=== PATIENT | female | born 1970 | race Caucasian/White ===

== ENCOUNTER 2024-06-18 23:13 | Emergency (ER) | payer BC, SELFPAY ==
--- OUTSIDE RECORDS SUMMARY | 2024-06-18 23:15 | XMS_ITS | Continuity of Care Document ---
Author Organization [facility] Address [address] [address] [place] [address] Phone Care Team Providers Care Pharmacologist Name Role Phone Sonny Rodriguez MD Unavailable Unavailable Advance Directives Directive Yes / No Effective Date File Name No Information Encounters Encounter Description Practice Location Reason(s) For Visit Diagnoses Date Provider Providers Copied on Encounter [facility], [address] [address], [place], [place], [id number], [place] tel:[phone] [facility] No Information Jennifer Dennis. [address] [facility], [facility] [address], [place], [place], [id number], [place]. tel:[phone] Referring Provider: Listed Not. Family History Family Member Type Diagnosis Age At Onset No Information Payers Payer name Insurance type Covered alliance party ID Authoriza tion(s) No Information Social History Type Description Quantity Date Captured Comments Sex Female Smoking Status No Information Chief Complaint And Reason For Visit No Information Reason For Referral Reason For Referral No Information History Of Present Illness Encounter Date Complaint History Of Prese nt Illness No Information Functional Status Date Functional Assessmen t No Information Instructions Date Instruction Additional Infor mation No Information Assessments Type Assessment Date No Information Patient Care Teams Name Effective Dates (start - stop) Status Members No Information
--- OUTSIDE RECORDS SUMMARY | 2024-06-18 23:15 | XMS_ITS | Clinical Summary ---
Author Organization [facility] Address [place], [place] [address] Care Team Providers Care Electrical Machine Builder Name Role Phone Vania Finley Primary Care Provider [phone] Allergies No known active allergies Medications omeprazole 20 mg tabletIndications:G astric reflux Take 1 Tablet (20 mg) by mouth once daily before a meal. 90 Tablet 3 4 Active miscellaneous medical supply (Blood Pressure Cuff) miscIndications:Nicole vated BP without diagnosis of hypertension As directed. 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 90 Tablet 3 4 Active sertraline (ZOLOFT) 100 mg tabletIndications:M oderate episode of recurrent major depressive disorder (HC) Take 1.5 Tablets (150 mg) by mouth once daily. 135 Tablet 2 4 Active SUMAtriptan (IMITREX) 50 mg tabletIndications:M igraine without aura and without status migrainosus, not intractable take 1-2 tablets by mouth once at sign of migraine, may repeat dose after 2 hours. do not take more than 2 tablets per dose or 4 tablets per 24 hours 10 Tablet 2 4 Active celecoxib (CeleBREX) 100 mg capsuleIndications: Primary osteoarthritis of left hip Take 1 Capsule (100 mg) by mouth two times daily with meals. 60 Capsule Active Active Problems Problem Noted Date Diagnosed Date Anxiety 09/21/2013 Depression 09/21/2013 Major depression in partial remission 03/31/2013 GERD (gastroesophageal reflux disease) Encounters Date Type Department Care Team Description 06/14/2024 9:58 AM [facility] - 06/14/2024 11:59 PM [facility] Hospital Encounter [address] [place] [address] [place]ge, Farhana Neves, PT 06/14/2024 Travel 05/27/2024 10:51 AM [facility] - 05/27/2024 11:59 PM [facility] Hospital Encounter [address] [place] [place] [address] [place], Ariela Cantu V, MATHEMATICAL SCIENTIST 05/27/2024 Travel 05/20/2024 11:45 AM [facility] - 05/20/2024 11:59 PM [facility] Hospital Encounter [address] [place] [place] [address] Aster Pastor, Farhana Posadas, PT Primary osteoarthritis of left hip 05/20/2024 Travel 04/21/2024 10:45 AM [facility] Ancillary Procedure [facility] [address] [address] [place] [address] 04/21/2024 10:40 AM [facility] Ancillary Procedure [facility] [address] [place] [address] 04/21/2024 10:30 AM [facility] Office Visit [facility] [address] [address] [place] [address] [place] Monge, Hip Pain/problem (Left hip pain) 04/21/2024 Travel 04/19/2024 9:30 AM [facility] - 04/19/2024 11:59 PM [facility] Hospital Encounter [facility] [address] [place] [address] Vania Finley, DO Hip pain, left 04/19/2024 Travel 04/07/2024 Telephone [facility] [address] [place] [address] Vania Finley, DO Work Note 04/06/2024 9:10 AM [facility] Office Visit [facility] [address] [facility] [address] Vania Finley, DO Musculoskeletal Problem (Left sided groin pain down through leg ongoing getting worse) 04/06/2024 Travel from Last 3 Months Immunizations Name Administration Dates Next Due COVID-19 vaccine (Moderna 100mcg/0.5mL) PF, MDV 07/27/2020,06/29/2020 Influenza Virus, Unspecified 03/09/2014(Deferred : Patient Refused) Influenza, IIV3 (Age >=3 years) 03/09/2014 Tdap 12/19/2014 Social History Tobacco Use Types Packs/Day Years Used Date Smoking Tobacco: Some Days Cigarettes Smokeless Tobacco: Never Tobacco Cessation:Ready to Q uit: No; Counseling Given: Yes Alcohol Use Standard Drinks/Week Comments Yes 0 (1 standard drink = 0.6 oz pur e alcohol) less than monthly PHQ-2 Answer Date Recorded PHQ-2 TOTAL SCORE 6 04/06/2024 Social Connections Answer Date Recorded Do you often feel lonely or isolated from those around you? 0 07/16/2023 Alcohol Use Answer Date Recorded How often do you have a drink containing alcohol ? 1 07/16/2023 How many drinks containing a lcohol do you have on a typical day when you are drinking? 0 07/16/2023 How often do you have five or more drinks on one occasion? 0 07/16/2023 Financial Resource Strain Answer Date R ecorded Difficulty of Paying Living Expenses 3 07/16/2023 Difficulty of Paying Living Expenses Not on file 07/16/2023 Food Insecurity Answer Date Recorded Do you worry your food will run out before you are able to buy more? 1 07/16/2023 Transportation Needs Answer Date Record ed Does lack of transportation keep you from medica l appointments? 1 07/16/2023 Does lack of transportation keep you from work, meetings or getting things that you need? 1 07/16/2023 Housing Stability Answer Date Recorded What is your housing situation today? 1 07/16/2023 Utilities Answer Date Recorded Do you have trouble paying f or utilities (for example, heat, electricity, water, phone)? 1 07/16/2023 Comments No Sex and Gender Information Value Date Recorded Sex Assigned at Not on file Legal Sex Female 5:26 AM [facility] Gender Identity Not on file Sexual Orientation Not on file Obstetrics History Last Filed Vital Signs Vital Sign Reading Time Taken Comments Blood Pressure 118/83 04/06/2024 9:26 AM [facility] Pulse 55 04/06/2024 9:26 AM [facility] Temperature 36.2 C (97.1 F) 01/20/2018 7:47 AM CDT Respiratory Rate 14 09/26/2023 12:23 PM CDT Oxygen Saturation 96% 04/06/2024 9:26 AM [facility] Inhaled Oxygen Concentration - - Weight 80.1 kg (176 lb 8 oz) 07/16/2023 9:29 AM [facility] Height 160 cm (5' 3) 04/21/2024 11:00 AM [facility] Body Mass Index 32.02 07/16/2023 9:29 AM [facility] Plan of Treatment Upcoming Encounters Date Type Department Care Team (Late st Contact Info) Description 06/23/2024 8:30 AM [facility] Office Visit [facility] [address] [phone] Glen Monge, [address] [place] [address] Health Maintenance Due Date Last Done Comments HIV for age 15-65 1983 Hepatitis C screening for ag e 18-79 1986 Pneumococcal series for age 50+ (1 of 2 - PCV) 1987 Pap test for age 21-65 09/06/2007 09/05/2004 Mammogram for age 45-75 2013 Zoster (shingles) series for age 50+ (1 of 2) 2018 COVID-19 vaccine series ( season) 2024 07/27/2020, 06/29/2020 Influenza for age 50-64 01/18/2024 03/09/2014 Lipids for age 45-75 05/26/2024 05/26/2019 BMI (ht and wt on same day) for age 18+ 07/16/2024 07/16/2023, 01/20/2018 Tetanus booster 12/19/2024 12/19/2014 Depression screening for age 12+ 04/07/2025 04/07/2024, 04/06/2024, 07/16/2023, Additional history exists Colonoscopy through age 75 09/25/2033 09/26/2023, Tdap Completed 12/19/2014 Procedures Procedure Name Priority Date/Time Associated Diagnosis Comments XR LEG LENGTH Routine 04/21/2024 10:37 AM [facility] Chronic left hip pain XR HIP 2 OR 3 VIEWS W PELVIS LEFT Routine 04/21/2024 10:36 AM [facility] Chronic left hip pain MR ARTHROGRAM HIP LEFT Routine 10:41 AM [facility] Hip pain, left XR INJ CT/MR ARTHROGRAM HIP LEFT Routine 04/19/2024 10:22 AM [facility] Hip pain, left COLONOSCOPY 09/26/2023 11:19 AM CDT LIPID PANEL W REFLEX MEASURED LDL Routine 05/26/2019 2:30 PM [facility] Lipid screening GYNECOLOGICAL PANEL Timed 09/05/2004 2 :26 PM CDT from Last 3 Months or Most Recently Relevant to Health Maintenance Results * XR LEG LENGTH (04/21/2024 10:37 AM [facility]) Anatomical Region Laterality Modality LEGS, FEMURS Computed Radiogr aphy 04/21/2024 11:3 3 AM [facility] Narrative 04/21/2024 11:33 AM [facility] For Patients: As a result of the Cures Act, medical imaging exams and procedure reports are released immediately into your electronic medical record. You may view this report before your referring provider. If you have questions, please contact your health care provider. INDICATION: Chronic left hip pain TECHNIQUE: Leg length 1 AP view hip to ankle bilateral. COMPARISON: None. FINDINGS: Measurements are made from hip acetabulum to ankle mortise. Right le.8 cm Left le.1 cm Dictated by Bri Bassett MD @ 04/21/2024 11:33:26 AM (Electronically Signed) Procedure Note Alan Bassett MD - 04/21/2024 For Patients: As a result of the s Act, medical imagingexams and procedure reports are released immediately into your electronicmedical record. You may view this report before your referring provider.If you have questions, please contact your health care provider. INDICATION: Chronic left hip pain TECHNIQUE: Leg length 1 AP view hip to ankle bilateral. COMPARISON: None. FINDINGS: Measurements are made from hip acetabulum to ankle mortise. Right le.8 cm Left le.1 cm Dictated by Bri Bassett MD @ 04/21/2024 11:33:26 AM (Electronically Signed) Glen Monge DO GENERAL IMAGING Final Resu lt * XR HIP 2 OR 3 VIEWS W PELVIS LEFT (04/21/2024 10:36 AM [facility]) Anatomical Region Laterality Modality HIPS, HIPL, Pelvis Computed Radi ography 04/21/2024 11:3 1 AM [facility] Narrative 04/21/2024 11:31 AM [facility] For Patients: As a result of the s Act, medical imaging exams and procedure reports are released immediately into your electronic medical record. You may view this report before your referring provider. If you have questions, please contact your health care provider. INDICATION: Chronic left hip pain. TECHNIQUE: AP pelvis and left hip 3 views. FINDINGS: Moderate osteoarthritis of the left hip. Mild right hip arthritis. No change from the recent MRI scan. No acute fracture lytic bone destruction. Dictated by Bri Bassett MD @ 04/21/2024 11:31:59 AM (Electronically Signed) Procedure Note Alan Bassett MD - 04/21/2024 For Patients: As a result of the Cures Act, medical imagingexams and procedure reports are released immediately into your electronicmedical record. You may view this report before your referring provider.If you have questions, please contact your health care provider. INDICATION: Chronic left hip pain. TECHNIQUE: AP pelvis and left hip 3 views. FINDINGS: Moderate osteoarthritis of the left hip. Mild right hip arthritis. Nochange from the recent MRI scan. No acute fracture lytic bonedestruction. Dictated by Bri Bassett MD @ 04/21/2024 11:31:59 AM (Electronically Signed) us Glen Monge DO GENERAL IMAGING Final Resu lt * MR ARTHROGRAM HIP LEFT (04/19/2024 10:41 AM [facility]) Anatomical Region Laterality Modality HIPL Magnetic Resonan ce 04/20/2024 10:3 8 AM [facility] Impressions 04/20/2024 10:38 AM [facility] 1. Mild to moderate osteoarthritis left hip. No labral tear. 2. Mild osteoarthritis right hip on large field imaging. 3. Didelphys uterus. Dictated by Nathan Bravo MD @ 04/20/2024 10:38:27 AM (Electronically Signed) Narrative 04/20/2024 10:38 AM [facility] For Patients: As a result of the Cures Act, medical imaging exams and procedure reports are released immediately into your electronic medical record. You may view this report before your referring provider. If you have questions, please contact your health care provider. INDICATION: Hip pain. COMPARISON: Plain film 16 July 2023. TECHNIQUE: Axial, oblique axial, coronal and sagittal T1 fat sat axial and sagittal PD fat- sat small [id number] sequences. Coronal large field pelvis T1 and PD fat-sat sequences. Dilute intra-articular gadolinium into the left hip. FINDINGS: Left hip: No fracture, bone lesion or avascular necrosis. Up to grade 4 diffuse cartilage loss anterior and superior margin with relative posterior sparing. Patchy subchondral edema in the superior central femoral head deep to full thickness cartilage loss. Small subchondral cysts and edema of the superior and anterior acetabulum fossa. No significant labral tear. Some minor fraying of the free margin anteriorly. No intra-articular body or synovitis. Normal-appearing acetabular and femoral morphology. Intact hamstring origin. Intact gluteal tendon insertions. No trochanteric bursitis. Pelvis: Subchondral cysts of the anterosuperior right acetabulum. No effusion. No full thickness cartilage loss. No trochanteric bursitis. Intact hamstring origin. Apparent didelphys uterus. Normal sacroiliac joints and symphysis pubis. Procedure Note Nathan Bravo MD - 04/20/2024 For Patients: As a result of the Cures Act, medical imagingexams and procedure reports are released immediately into your electronicmedical record. You may view this report before your referring provider.If you have questions, please contact your health care provider. INDICATION: Hip pain. COMPARISON: Plain film 16 July 2023. TECHNIQUE: Axial, oblique axial, coronal and sagittal T1 fat sat axial and sagittalPD fat- sat small [id number] sequences. Coronal large field pelvis T1and PD fat-sat sequences. Dilute intra-articular gadolinium into the lefthip. FINDINGS: Left hip: No fracture, bone lesion or avascular necrosis. Up to grade 4diffuse cartilage loss anterior and superior margin with relativeposterior sparing. Patchy subchondral edema in the superior centralfemoral head deep to full thickness cartilage loss. Small subchondralcysts and edema of the superior and anterior acetabulum fossa. Nosignificant labral tear. Some minor fraying of the free margin anteriorly.No intra-articular body or synovitis. Normal-appearing acetabular andfemoral morphology. Intact hamstring origin. Intact gluteal tendoninsertions. No trochanteric bursitis. Pelvis: Subchondral cysts of the anterosuperior right acetabulum. Noeffusion. No full thickness cartilage loss. No trochanteric bursitis.Intact hamstring origin. Apparent didelphys uterus. Normal sacroiliacjoints and symphysis pubis. IMPRESSION: 1. Mild to moderate osteoarthritis left hip. No labral tear. 2. Mild osteoarthritis right hip on large field imaging. 3. Didelphys uterus. Dictated by Nathan Bravo MD @ 04/20/2024 10:38:27 AM (Electronically Signed) us Vania Finley DO MR Final Resu lt * XR INJ CT/MR ARTHROGRAM HIP LEFT (04/19/2024 10:22 AM [facility]) Anatomical Region Laterality Modality HIPL Computed Radiogr aphy, Other 04/19/2024 10:5 7 AM [facility] Impressions 04/19/2024 10:57 AM [facility] Successful left hip arthrogram, pre-MRI. Dictated by Bri Bassett MD @ 04/19/2024 10:57:11 AM (Electronically Signed) Narrative 04/19/2024 10:57 AM [facility] For Patients: As a result of the Cures Act, medical imaging exams and procedure reports are released immediately into your electronic medical record. You may view this report before your referring provider. If you have questions, please contact your health care provider. INDICATION: Left hip pain TECHNIQUE: Fluoroscopically-guided left hip arthrogram, pre-MRI. Fluoroscopy time: 19 seconds. 1 image. FINDINGS: The examination and risks were fully explained to the patient. A consent form was signed and a time-out conducted prior to initiating the study. Utilizing sterile procedure and 1 percent Xylocaine as local anesthesia, a 22- gauge spinal needle was directed into the left hip joint. 12 cc of a solution (containing 10 cc Omnipaque-300, 5 cc sterile saline, 5 cc ropivacaine 0.5 percent and 0.2 cc gadolinium) was injected. No bleeding at the puncture site or complication. The patient was stable at the termination of the procedure. Procedure Note Alan Bassett MD - 04/19/2024 For Patients: As a result of the Cures Act, medical imagingexams and procedure reports are released immediately into your electronicmedical record. You may view this report before your referring provider.If you have questions, please contact your health care provider. INDICATION: Left hip pain TECHNIQUE: Fluoroscopically-guided left hip arthrogram, pre-MRI. Fluoroscopy time: 19 seconds. 1 image. FINDINGS: The examination and risks were fully explained to the patient. A consentform was signed and a time-out conducted prior to initiating the study. Utilizing sterile procedure and 1 percent Xylocaine as local anesthesia, a22- gauge spinal needle was directed into the left hip joint. 12 cc of asolution (containing 10 cc Omnipaque-300, 5 cc sterile saline, 5 ccropivacaine 0.5 percent and 0.2 cc gadolinium) was injected. No bleedingat the puncture site or complication. The patient was stable at thetermination of the procedure. IMPRESSION: Successful left hip arthrogram, pre-MRI. Dictated by Bri Bassett MD @ 04/19/2024 10:57:11 AM (Electronically Signed) us Vania Finley DO FLUOROSCOPY Final Resu lt * COLONOSCOPY (09/26/2023 11:19 AM CDT) 09/26/2023 11:1 9 AM CDT Narrative Transcriptions Jamar Pedraza MD - 09/26/2023 12:13 PM CDT Patient Name: Diane Pumper Procedure Date: 09/26/2023 Gender: Female Date of : 1970 Admit Type: Outpatient Procedure: Colonoscopy Proceduralist: Jamar Pedraza MD , Sonia Bedolla, RN(Nurse), Keren Bunn (Nurse) Indications/Pre-Op Diagnosis: Screening for colorectal malignant neoplasm, This is the patient's first colonoscopy Medications: Fentanyl 100 micrograms IV, Midazolam 3 mgIV, The level of sedation administered wasmoderate Procedure Description: The patient had risks, benefits and alternatives explained to andgave informed consent. The patient had a stable cardiopulmonary status and judged an adequate candidate for conscious sedation. The endoscope [id number]-H190L [id number] was passed through the anus andadvanced to the cecum, identified by appendiceal orifice and ileocecal valve.The colonoscopy was performed without difficulty. The patient toleratedthe procedure well. The quality of the bowel preparation was good. The ileocecal valve, appendiceal orifice, and rectum were photographed. Complications: No immediate complications. Estimated Blood Loss & Specimen: Estimated blood loss: none. Specimen collected - None Findings: The perianal and digital rectal examinations were normal. Scattered small-mouthed diverticula were found in the sigmoidcolon. The exam was otherwise without abnormality. Impressions/Post-Op Diagnosis: - Diverticulosis in the sigmoid colon. - The examination was otherwise normal. - No specimens collected. Recommendation: - Patient has a contact number available for emergencies. The signsand symptoms of potential delayed complications were discussed with the patient. Return to normal activities tomorrow. Written discharge instructions were provided to the patient. - Resume previous diet. - Continue present medications. - Repeat colonoscopy in 10 years for screening purposes. Moderate Sedation: A time out was performed before the procedure. Moderate (conscious) sedation was administered by the endoscopy nurse and supervised bythe endoscopist. The following parameters were monitored: oxygensaturation, heart rate, blood pressure, EKG, CO2, respiratory rate, adequacy of pulmonary ventilation and reponse to care. Please refer to the patient's medical record flowsheets and nursing notes for moderate sedation details. Total physician intraservice time was 18 minutes. Jamar Pedraza MD 09/26/2023 12:12:47 PM This report has been signed electronically. Note Initiated On: 09/26/2023 11:19 AM Procedure Code(s): --- Professional --- 19153, Colonoscopy, flexible; diagnostic, including collection of specimen(s) bybrushing or washing, when performed (separateprocedure) Diagnosis Code(s): --- Professional --- Z12.11, Encounter for screening formalignant neoplasm of colon K57.30, Diverticulosis of large intestine without perforation or abscess withoutbleeding CPT copyright 2022 [employer]. All rights reserved. The codes documented in this report are preliminary and upon sanitation technician reviewmay be revised to meet current compliance requirements. Scope In: 11:45:25 AM Scope Withdrawal Time 0 hours 7 minutes 32 seconds Scope Out: 12:00:22 PM Jamar Pedraza MD PROCEDURE ORD Final Res ult * (ABNORMAL) LIPID PANEL W REFLEX MEASURED LDL (05/26/2019 2:30 PM [facility]) CHOLESTEROL,TOTAL 221(H) 100 - 199 mg/dL 05/26/2019 7:18 PM [facility] TRIGLYCERIDES 210(H) <150 mg/dL 05/26/2019 7:18 PM [facility] HDL CHOLESTEROL 54 >40 mg/dL 0 7:18 PM [facility] NON-HDL CHOLESTEROL 167(H) <145 mg/dl 05/26/2019 7:18 PM [facility] CHOL/HDL RATIO 4.09 <4.50 05/26/2019 7:18 PM [facility] LDL CHOLESTEROL 125 <=130 mg/dL 05/26/2019 7:18 PM [facility] PROVIDER ORDERED STATUS RANDOM 05/26/2019 7:18 PM [facility] Blood BLOOD SPECIMEN / Unknown Venipuncture / Unknown 05/26/2019 2:30 PM [facility] 05/26/2019 2:31 PM [facility] us Ryan Muller MD CHEMISTRY Final Resu lt [facility] [address] [place] [address], * GYNECOLOGICAL PANEL (09/05/2004 2:26 PM CDT) CYTOLOGY CYTOPATHOLOGY REPORT [facility] [address] [place] [address], [place] [address] Status: Final Report [id number] CLINICAL INFORMATION Reason for Visit : Routine LMP : 08/29/04 Previous PAP Test : Yes Previous PAP Date : 2001 Previous PAP Dx : Negative Previous Colposcopy/Bx: Not specified Hormone Usage : Not given Additional Data : Not given HPV Request : Reflex HPV test if PAP Dx ASCUS SPECIMEN SOURCE : Cervical/vaginal thin, screening SPECIMEN ADEQUACY : Satisfactory for evaluation No endocervical component seen. INTERPRETATION/RE SULT: Negative for intraepithelial lesion or malignancy. Cytology 1st Screener : tani Signed by: tll Interinstitution al comparison of correlations between cervicovaginal smears and biopsies demonstrate an overall false-negative rate of 8% for Pap smears. Consideration should be given to performing a biopsy on any suspicious lesion regardless of the Pap test result. COLLECTED: 09/05/04 ACCESSIONED: 09/06/04 SIGNED: 09/12/04 [facility] 09/05/2004 2:26 PM CDT 09/06/2004 9:25 AM CDT us Ryan Muller MD PATHOLOGY/CYTOLOGY Final R esult [facility] INTERNAL ZIP [address] [address] from Last 3 Months or Most Recently Relevant to Health Maintenance Insurance BLUE CROSS OF NON-IA-ITS [facility] Invaluable [facility] Care Teams Electrical Machine Builder Relationship Specialty Start Date End Date Vania Finley [place] [address] [place] [address] PCP - General Family Practice 03/31/24
[2024-06-18 23:17] VITALS: BP 179/105; PULSE 73; RESP 18; TEMP 36.1; O2SAT 98; BMI 31.9
--- NOTE | 2024-06-18 23:37 | ED.GENADULT ---
HPI - General Adult General Date Seen: 06/18/24 Chief complaint: Headache/Migraine Stated complaint: migraine Time Seen by Provider: 06/18/24 23:36 History of Present Illness HPI narrative: Pleasant 54-year-old female with history migraine headaches. 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 She presents to the ER tonight with a headache that started around 7:00 p.m. headache is similar in onset, location, and overall feel to her normal migraines. Headache is located mostly in the right frontal region and behind her right eye. It is associated with photophobia, phonophobia. She is nauseous and has had several episodes of nonbloody vomiting. No associated fever. No neck pain or stiffness. Headache was not abrupt in onset. No recent head trauma. She tried taking ohwz-vpj-bowvfxj medications, but has been vomiting up her medications due to nausea. Related Data Home Medications ?Medication ?Instructions ?Recorded ?Confirmed omeprazole 20 mg capsule,delayed 20 mg PO DAILY 02/26/24 06/18/24 release sertraline 100 mg tablet 150 mg PO DAILY 02/26/24 06/18/24 sumatriptan succinate 50 mg tablet 50 - 100 mg PO Q2H migraine 02/26/24 06/18/24 trazodone 50 mg tablet 50 - 100 mg PO QPM PRN insomnia 02/26/24 06/18/24 Allergies Allergy/AdvReac Type Severity Reaction Status Date / Time ibuprofen Allergy Verified 06/18/24 23:41 PFSH PFS Social History Do you use any of these nicotine containing products: None Non-prescribed substance use: denies use Exam Narrative: Exam Narrative: Constitutional: Appears well-developed and well-nourished. Alert. Initially covering her eyes with a washcloth due to photophobia. Polite and conversant non the LEs. HENT: Head: Atraumatic. Nose: Nose normal. Mouth/Throat: Oral mucosa is clear and moist. no trismus. Pharynx normal. Eyes: Conjunctivae normal. EOM normal. Pupils equal, round, and reactive to light. No scleral icterus. Neck: Normal range of motion. Neck supple. No tracheal deviation present. Cardiovascular: Normal rate, regular rhythm. Pulmonary/Chest: Effort normal. No stridor. No respiratory distress. Musculoskeletal: RUE: Normal range of motion. No deformity LUE: Normal range of motion.No deformity RLE: Normal range of motion. No edema.. No deformity LLE: Normal range of motion. No edema. No deformity Neurological: Alert and oriented to person, place, and time. CN II-VII intact. No sensory deficit. GCS eye subscore is 4. GCS verbal subscore is 5. GCS motor subscore is 6. Normal coordination Skin: Skin is warm and dry. No rash noted. No pallor. Normal capillary refill. Psychiatric: Normal mood. Normal affect, allowing for discomfort. Alert and conversant. Const: Vital Signs, click to edit/add: Vital Signs - 24 hr 06/18/24 23:17 Temperature 96.9 F L Pulse Rate [Pulse Oximeter] 73 Respiratory Rate 18 Blood Pressure [Le ft Upper Arm] 179/105 H Pulse Oximetry 98 Oxygen Delivery Me thod Room Air Course Course ED Course: Recheck-05 17. Patient says that she is really starting to feel better. Received her Imitrex about 15 minutes ago. Will observe another 15 or 20 minutes. If improved, anticipate she may be able to discharge. Discussed with my partner, Dr. Rao. Vital Signs Vital signs: Initial Vital Signs Temperature 96.9 F L 06/18/24 23:17 Temperature Source Temporal Artery Scan 06/18/24 23:17 Pulse Rate 73 06/18/24 23:17 Respiratory Rate 18 06/18/24 23:17 Blood Pressure 179/105 H 06/18/24 23:17 Blood Pressure Mean 129 H 06/18/24 23:17 Blood Pressure Position Sitting 06/18/24 23:17 Pulse Oximetry 98 06/18/24 23:17 Oxygen Delivery Method Room Air 06/18/24 23:17 Vital Signs Temperature 96.9 F L 06/18/24 23:17 Pulse Rate 73 06/18/24 23:17 Respiratory Rate 18 06/18/24 23:17 Blood Pressure 179/105 H 06/18/24 23:17 Pulse Oximetry 98 06/18/24 23:17 Oxygen Delivery Method Room Air 06/18/24 23:17 Temperature 96.9 F L 06/18/24 23:17 Pulse Rate 73 06/18/24 23:17 Respiratory Rate 18 06/18/24 23:17 Blood Pressure 179/105 H 06/18/24 23:17 Pulse Oximetry 98 06/18/24 23:17 Oxygen Delivery Method Room Air 06/18/24 23:17 Medications Administered Medications: Discontinued Medications Generic Name Dose Route Start Last Admin Trade Name Sophia PRN Reason Stop Dose Admin Diphenhydramine HCl 12.5 mg 06/19/24 00:00 06/19/24 00:13 Diphenhydramine 50 Mg/Ml Inj IVP 06/19/24 00:01 12.5 mg ONCE ONE Administration Sodium Chloride 500 mls @ 500 mls/hr 06/18/24 23:37 06/19/24 00:18 0.9 % Sodium Chloride 500 Ml IV 06/19/24 00:36 Infused .Q1H ONE Infusion Ketorolac Tromethamine 15 mg 06/18/24 23:37 06/19/24 00:18 Ketorolac 15 Mg/Ml Inj IVP 06/18/24 23:38 Not Given ONCE ONE Metoclopramide HCl 10 mg 06/19/24 00:00 06/19/24 00:13 Metoclopramide Hcl 5 Mg/Ml Inj IVP 06/19/24 00:01 10 mg ONCE ONE Administration Ondansetron HCl 4 mg 06/18/24 23:38 06/18/24 23:44 Ondansetron 2 Mg/Ml Inj IVP 06/18/24 23:39 4 mg ONCE ONE Administration Sumatriptan Succinate 6 mg 06/18/24 23:57 06/19/24 00:22 Sumatriptan 6 Mg/0.5 Ml Inj SUBCUT 06/18/24 23:58 6 mg ONCE ONE Administration Medical Decision Making MDM Narrative Medical decision making narrative: Ths patient presents with a headache. A broad differential diagnosis was considered including tension, migraine, analgesic rebound, occipital neuralgia, etc. Other less common but serious causes considered included meningitis, encephalitis, subarachnoid bleed, stroke, tumor, etc. her headache was not abrupt in onset and is similar in its location and symptoms to her usual migraines. Unfortunately she was out of her Imitrex that she normally takes. The patient has no signs of serious headache etiologies at this point. No advanced imaging is indicated, nor is CT/lumbar puncture for SAH. Patient's questions were answered and they feel improved after above interventions in ED. Supportive outpatient management is therefore indicated. Headache precautions given for home. Discharge Plan Discharge Clinical Impression: Headache Patient Disposition: Home, Self-Care Condition: Stable Instructions: Acute Headache (DC) Additional Instructions: Please come back to the ER right away if you have worsening headache, uncontrolled nausea vomiting, or any other new symptoms such as fever, neck stiffness or pain, cough or trouble breathing, numbness in your arms or legs, confusion, or any concerns. Please continue using your regular medications. Please follow-up with next week for recheck Prescriptions: No Action trazodone 50 mg tablet 50 - 100 mg PO QPM PRN (Reason: insomnia) omeprazole 20 mg capsule,delayed release(DR/EC) 20 mg PO DAILY sertraline 100 mg tablet 150 mg PO DAILY sumatriptan succinate 50 mg tablet 50 - 100 mg PO Q2H Follow Up/Referrals: Provider,Not a Local [Primary Care Provider] - Stand Alone Forms: [employer] Info Instructions
[2024-06-18] MEDS: 0.9 % SODIUM CHLORIDE 500 ML 500 ML IV (23:44)
[2024-06-18] MEDS: ONDANSETRON 2 MG/ML inj 4 MG IVP (23:44)
--- OUTSIDE RECORDS SUMMARY | 2024-06-19 00:07 | XMS_ITS | Clinical Summary ---
Author Organization [facility] Address [place], [place] [address] Care Team Providers Care Scanning Clerk Name Role Phone Vania Finley Primary Care Provider [phone] Allergies No known active allergies Medications omeprazole [...] Department Care Team Description 06/14/2024 9:58 AM BEHAVIORAL CONSULTANT - 06/14/2024 11:59 PM BEHAVIORAL CONSULTANT Hospital Encounter [address] [place] [address] [place] Monge, Farhana Neves, PT 06/14/2024 Travel 05/27/2024 10:51 AM BEHAVIORAL CONSULTANT - 05/27/2024 11:59 PM BEHAVIORAL CONSULTANT Hospital Encounter [address] [place] [address] [place] Monge, Ariela Cantu V, WALL CLEANER 05/27/2024 Travel 05/20/2024 11:45 AM BEHAVIORAL CONSULTANT - 05/20/2024 11:59 PM BEHAVIORAL CONSULTANT Hospital Encounter [address] [place] [address] Aster Pastor, Farhana Posadas, PT Primary osteoarthritis of left hip 05/20/2024 Travel 04/21/2024 10:45 AM BEHAVIORAL CONSULTANT Ancillary Procedure [facility] [address] [address] [place] [address] 04/21/2024 10:40 AM BEHAVIORAL CONSULTANT Ancillary Procedure [facility] [address] [place] [address] 04/21/2024 10:30 AM BEHAVIORAL CONSULTANT Office Visit [facility] [address] [address] [place] [address] Glen Monge, Hip Pain/problem (Left hip pain) 04/21/2024 Travel 04/19/2024 9:30 AM BEHAVIORAL CONSULTANT - 04/19/2024 11:59 PM BEHAVIORAL CONSULTANT Hospital Encounter [facility] [address] [place] [address] Vania Finley, DO Hip pain, left 04/19/2024 Travel 04/07/2024 Telephone [facility] [address] [place] [address] Vania Finley, DO Work Note 04/06/2024 9:10 AM BEHAVIORAL CONSULTANT Office Visit [facility] [address] [facility] [address] Vania Finley, DO Musculoskeletal Problem (Left sided [...] on file Legal Sex Female 5:26 AM BEHAVIORAL CONSULTANT Gender Identity Not on file Sexual Orientation Not on file Obstetrics History Last Filed Vital Signs Vital Sign Reading Time Taken Comments Blood Pressure 118/83 04/06/2024 9:26 AM BEHAVIORAL CONSULTANT Pulse 55 04/06/2024 9:26 AM BEHAVIORAL CONSULTANT Temperature 36.2 C (97.1 F) 01/20/2018 7:47 AM CDT Respiratory Rate 14 09/26/2023 12:23 PM CDT Oxygen Saturation 96% 04/06/2024 9:26 AM BEHAVIORAL CONSULTANT Inhaled Oxygen Concentration - - Weight 80.1 kg (176 lb 8 oz) 07/16/2023 9:29 AM BEHAVIORAL CONSULTANT Height 160 cm (5' 3) 04/21/2024 11:00 AM BEHAVIORAL CONSULTANT Body Mass Index 32.02 07/16/2023 9:29 AM BEHAVIORAL CONSULTANT Plan of Treatment Upcoming Encounters Date Type Department Care Team (Late st Contact Info) Description 06/23/2024 8:30 AM BEHAVIORAL CONSULTANT Office Visit [facility] [address] [phone] Glen Monge, [address] [place] [address] Health Maintenance Due Date Last Done Comments [...] XR LEG LENGTH Routine 04/21/2024 10:37 AM BEHAVIORAL CONSULTANT Chronic left hip pain XR HIP 2 OR 3 VIEWS W PELVIS LEFT Routine 04/21/2024 10:36 AM BEHAVIORAL CONSULTANT Chronic left hip pain MR ARTHROGRAM HIP LEFT Routine 10:41 AM BEHAVIORAL CONSULTANT Hip pain, left XR INJ CT/MR ARTHROGRAM HIP LEFT Routine 04/19/2024 10:22 AM BEHAVIORAL CONSULTANT Hip pain, left COLONOSCOPY 09/26/2023 11:19 AM CDT LIPID PANEL W REFLEX MEASURED LDL Routine 05/26/2019 2:30 PM BEHAVIORAL CONSULTANT Lipid screening GYNECOLOGICAL PANEL Timed 09/05/2004 2 :26 PM CDT from Last 3 Months or Most Recently Relevant to Health Maintenance Results * XR LEG LENGTH (04/21/2024 10:37 AM BEHAVIORAL CONSULTANT) Anatomical Region Laterality Modality LEGS, FEMURS Computed Radiogr aphy 04/21/2024 11:3 3 AM BEHAVIORAL CONSULTANT Narrative 04/21/2024 11:33 AM BEHAVIORAL CONSULTANT For Patients: As a result of the [...] VIEWS W PELVIS LEFT (04/21/2024 10:36 AM BEHAVIORAL CONSULTANT) Anatomical Region Laterality Modality HIPS, HIPL, Pelvis Computed Radi ography 04/21/2024 11:3 1 AM BEHAVIORAL CONSULTANT Narrative 04/21/2024 11:31 AM BEHAVIORAL CONSULTANT For Patients: As a result of the [...] MR ARTHROGRAM HIP LEFT (04/19/2024 10:41 AM BEHAVIORAL CONSULTANT) Anatomical Region Laterality Modality HIPL Magnetic Resonan ce 04/20/2024 10:3 8 AM BEHAVIORAL CONSULTANT Impressions 04/20/2024 10:38 AM BEHAVIORAL CONSULTANT 1. Mild to moderate osteoarthritis left hip. No labral tear. 2. Mild osteoarthritis right hip on large field imaging. 3. Didelphys uterus. Dictated by Nathan Bravo MD @ 04/20/2024 10:38:27 AM (Electronically Signed) Narrative 04/20/2024 10:38 AM BEHAVIORAL CONSULTANT For Patients: As a result of the [...] axial and sagittal PD fat- sat small vlddh-nz-npav sequences. Coronal large field pelvis T1 and [...] sat axial and sagittalPD fat- sat small rimur-lm-rfkn sequences. Coronal large field pelvis T1and PD [...] CT/MR ARTHROGRAM HIP LEFT (04/19/2024 10:22 AM BEHAVIORAL CONSULTANT) Anatomical Region Laterality Modality HIPL Computed Radiogr aphy, Other 04/19/2024 10:5 7 AM BEHAVIORAL CONSULTANT Impressions 04/19/2024 10:57 AM BEHAVIORAL CONSULTANT Successful left hip arthrogram, pre-MRI. Dictated by Bri Bassett MD @ 04/19/2024 10:57:11 AM (Electronically Signed) Narrative 04/19/2024 10:57 AM BEHAVIORAL CONSULTANT For Patients: As a result of the [...] candidate for conscious sedation. The endoscope [id number] was passed through the anus andadvanced to [...] 11:19 AM Procedure Code(s): --- Professional --- 17442, Colonoscopy, flexible; diagnostic, including collection of specimen(s) bybrushing or washing, when performed (separateprocedure) Diagnosis Code(s): --- Professional --- Z12.11, Encounter for screening formalignant neoplasm of colon K57.30, Diverticulosis of large intestine without perforation or abscess withoutbleeding CPT copyright 2022 [employer]. All rights reserved. The codes documented in this report are preliminary and upon radio operator reviewmay be revised to meet current compliance requirements. Scope In: 11:45:25 AM Scope Withdrawal Time 0 hours 7 minutes 32 seconds Scope Out: 12:00:22 PM Jamar Pedraza MD PROCEDURE ORD Final Res ult * (ABNORMAL) LIPID PANEL W REFLEX MEASURED LDL (05/26/2019 2:30 PM BEHAVIORAL CONSULTANT) CHOLESTEROL,TOTAL 221(H) 100 - 199 mg/dL 05/26/2019 7:18 PM BEHAVIORAL CONSULTANT [facility] TRIGLYCERIDES 210(H) <150 mg/dL 05/26/2019 7:18 PM BEHAVIORAL CONSULTANT [facility] HDL CHOLESTEROL 54 >40 mg/dL 0 7:18 PM BEHAVIORAL CONSULTANT [facility] NON-HDL CHOLESTEROL 167(H) <145 mg/dl 05/26/2019 7:18 PM BEHAVIORAL CONSULTANT [facility] CHOL/HDL RATIO 4.09 <4.50 05/26/2019 7:18 PM BEHAVIORAL CONSULTANT [facility] LDL CHOLESTEROL 125 <=130 mg/dL 05/26/2019 7:18 PM BEHAVIORAL CONSULTANT [facility] PROVIDER ORDERED STATUS RANDOM 05/26/2019 7:18 PM BEHAVIORAL CONSULTANT [facility] Blood BLOOD SPECIMEN / Unknown Venipuncture / Unknown 05/26/2019 2:30 PM BEHAVIORAL CONSULTANT 05/26/2019 2:31 PM BEHAVIORAL CONSULTANT us Ryan Muller MD CHEMISTRY Final Resu lt [facility] [address] [place] [address], * GYNECOLOGICAL PANEL (09/05/2004 2:26 PM CDT) CYTOLOGY CYTOPATHOLOGY REPORT [facility] [address] [place] [address], [place] [address] Status: Final Report [id number] CLINICAL INFORMATION Reason for Visit : Routine [...] result. COLLECTED: 09/05/04 ACCESSIONED: 09/06/04 SIGNED: 09/12/04 [facility] 09/05/2004 2:26 PM CDT 09/06/2004 9:25 AM CDT us Ryan Muller MD PATHOLOGY/CYTOLOGY Final R esult [facility] INTERNAL ZIP [phone] [address] from Last 3 Months or Most Recently Relevant to Health Maintenance Insurance [employer] OF NON-MI-ITS [facility] [employer] [facility] Care Teams Scanning Clerk Relationship Specialty Start Date End Date Vania [place] [address] [address] [place] [address] PCP - General Family Practice 03/31/24
--- OUTSIDE RECORDS SUMMARY | 2024-06-19 00:07 | XMS_ITS | Continuity of Care Document ---
Author Organization [facility] Address [address] [address] [place] [address] Phone Care Team Providers Care Student Life Dean Name Role Phone Sonny Rodriguez MD Unavailable Unavailable Advance Directives Directive Yes / No Effective Date File Name No Information Encounters Encounter Description Practice Location Reason(s) For Visit Diagnoses Date Provider Providers Copied on Encounter [facility], [address] [address], [place], [place], [id number], [place] tel:[phone] [facility] No Information Jennifer Dennis. [address] [facility], [facility] [address], [place], [place], [id number], [place]. tel:[phone] Referring Provider: Listed Not. Family History Family Member Type Diagnosis Age At Onset No Information Payers Payer name Insurance type Covered republican ID Authoriza tion(s) No Information Social History [...]
[2024-06-19] MEDS: METOCLOPRAMIDE HCL 5 MG/ML INJ 10 MG IVP (00:13)
[2024-06-19] MEDS: diphenhydrAMINE 50 MG/ML inj 12.5 MG IVP (00:13)
[2024-06-19] MEDS: SUMAtriptan 6 MG/0.5 ML INJ SUBCUT (00:22)
== END 2024-06-19 01:11 | disposition home or self-care (01) ==
PROVIDERS: Emergency Provider Emergency Medicine
DX: R51.9 Headache, unspecified (principal)
CPT/HCPCS: 96374; 96375; 99282; 99283; J1200; J2405; J2765; J3030; J7030